=== PATIENT | male | born 1940 | race Caucasian/White ===

== ENCOUNTER 2025-10-25 14:49 | Emergency (ER) | payer OTHER ==
[~2025-10-25] VITALS: Ht 165.1 cm; Wt 79.4 kg
[2025-10-25] MEDS: IV NS 0.9% 1,000 ML BAG IV ONE (15:14)
[2025-10-25 15:18] LABS: PLATELET COUNT (AUTO) 182 K/uL (150-450); RED BLOOD CELL COUNT(AUTO) 3.51 MIL/uL (4.5-6.0); RED CELL DISTRIBUTION WIDTH 13.6 % (11.5-15.0); WHITE BLOOD COUNT (AUTO) 4.4 K/uL (4.3-11.0)
[2025-10-25 15:32] LABS: INR 1.1 (0.91-1.10)
[2025-10-25 15:35] LABS: CALCIUM, SERUM 8.6 mg/dL (8.5-10.1); CREATININE 1.0 mg/dL (0.6-1.3); SERUM AMMONIA 18 umol/L (11-32); SODIUM SERUM 145 mmol/L (136-145); UREA NITROGEN, BLOOD 24 mg/dL (7-18)
[2025-10-25 15:41] LABS: ALCOHOL, BLOOD < 3 mg/dL (0-10); ASPARTATE AMINOTRANSFERASE 19 U/L (15-37); TOTAL PROTEIN, SERUM 7.8 g/dL (6.4-8.2)
[2025-10-25 15:43] LABS: LACTIC ACID 1.1 mmol/L (0.4-2.0)
[2025-10-25] MEDS: PIPERACILLIN /TAZOBACTAM 3.375 G in IV D5W 50 ML IV ONE (16:50)
[2025-10-25] MEDS: VANCOMYCIN 1 GM in IV D5W 250 ML IV ONE (17:20)
[2025-10-25 18:39] LABS: APPEARANCE,URINE CLEAR (CLEAR); BLOOD, URINE NEGATIVE Ery/uL (NEGATIVE); LEUKOCYTE ESTERASE ,URINE 2+ (NEGATIVE); NITRITE, URINE POSITIVE (NEGATIVE); UGLUCOSE NEGATIVE (NEGATIVE)
[2025-10-25 18:42] LABS: AMPHETAMINE, URINE NEGATIVE (NEGATIVE); BARBITURATE, URINE NEGATIVE (NEGATIVE); BENZODIAZEPINE, URINE NEGATIVE (NEGATIVE); CANNABINOID, URINE NEGATIVE (NEGATIVE); COCCAINE, URINE NEGATIVE (NEGATIVE); OPIATE, URINE POSITIVE (NEGATIVE)
[2025-10-25 19:12] LABS: ADD URINE CULTURE YES; SQUAMOUS EPITHELIAL CELL,UR Few /HPF (None Seen)
[2025-10-25 23:09] VITALS: BP 111/75; TEMP 97.8; O2SAT 96
== END 2025-10-25 23:10 ==
LOC: ER 14:57
DX: E63.9 Nutritional deficiency, unspecified (principal); R41.82 Altered mental status, unspecified; L97.919 Non-pressure chronic ulcer of unspecified part of right lower leg with unspecified severity; J44.89 Other specified chronic obstructive pulmonary disease; I48.92 Unspecified atrial flutter; I48.91 Unspecified atrial fibrillation; G40.909 Epilepsy, unspecified, not intractable, without status epilepticus; E86.0 Dehydration; L97.929 Non-pressure chronic ulcer of unspecified part of left lower leg with unspecified severity; I11.0 Hypertensive heart disease with heart failure; Z88.1 Allergy status to other antibiotic agents; Z88.2 Allergy status to sulfonamides
CPT/HCPCS: 99285; 96365; 96361; 96367; 93005; 71045; 73630 ×2; 70450; 82140; 85025; 80048; 87040 ×2; 87086; 83605; 80076; 85652; 81001; 36415; 84443; 84484; 85730; 86140; 93970; 80143; 80320; 80307; J3373; J2543; J7060; J7030; 87186-TC; G0480